=== PATIENT | male | born 1970 | race Caucasian/White ===

== ENCOUNTER → 2022-07-27 | Day surgery (SDC) | payer OTHER ==
[~2022-07-27] MED LIST: Bupivacaine 0.5% 30 ML SDV ONE; Dexamethasone 4 MG/ML SDV ONE; Glycopyrrolate 0.2 MG/ML 5 ML MDV ONE; Ketorolac 30 MG/ML SDV ONE; Lactated Ringers 1,000 ML ONE; Neostigmine Methylsulfate 1 MG/ML 5 ML Syringe ONE; Ondansetron 4 MG/2 ML SDV ONE; Propofol 200 MG/20 ML SDV ONE; Rocuronium 50 MG/5 ML Vial ONE; Succinylcholine 200 MG/10 ML MDV ONE; fentaNYL 250 MCG/5 ML SDV ONE; propofoL 0 ML ONE
[2022-07-27 19:57] VITALS: BP 134/66; PULSE 51
== END ==
LOC: JP.ED 16:21 → JP.SDS 17:13
PROVIDERS: ATTEND Specialist
DX: S82.891A Other fracture of right lower leg, initial encounter for closed fracture (principal); Z96.611 Presence of right artificial shoulder joint; Z79.899 Other long term (current) drug therapy
CPT/HCPCS: 27788; 27840; 73600-26-RT; 73600-RT; 76000; 99283; 99284-25; C1713; C1776; J0330; J1100; J1885; J2405; J2704; J2710; J3010; J3490; J7120; U0002

== ENCOUNTER 2023-06-01 08:57 | Day surgery (SDC) | payer OTHER ==
[2023-06-01 09:30] LABS: BASOPHILS ABSOLUTE AUTO 0.05 K/uL (0.00-0.10); BASOPHILS PERCENT AUTO 0.9 % (0.1-1.3); EOSINOPHILS ABSOLUTE AUTO 0.06 K/uL (0.00-0.40); EOSINOPHILS PERCENT AUTO 1.1 % (0.0-5.4); HEMOGLOBIN 15.7 g/dL (12.9-16.9); IMMATURE GRAN ABSOLUTE AUTO 0.01 K/uL (0.00-0.23); IMMATURE GRAN PERCENT AUTO 0.2 % (0.0-0.7); LYMPHOCYTES ABSOLUTE AUTO 1.63 K/uL (0.8-3.3); LYMPHOCYTES PERCENT AUTO 28.8 % (11.4-47.7); MEAN CORPUSCULAR HEMOGLOBIN 30.3 pg (31.6-35.5); MEAN CORPUSCULAR HGB CONC 35.7 g/dL (31.6-35.5); MEAN CORPUSCULAR VOLUME 84.9 fL (81.4-99.0); MONOCYTES ABSOLUTE AUTO 0.46 K/uL (0.20-0.90); MONOCYTES PERCENT AUTO 8.1 % (3.3-12.6); NEUTROPHILS ABSOLUTE AUTO 3.45 K/uL (1.0-7.6); NEUTROPHILS PERCENT AUTO 60.9 % (40.0-78.1); PLATELET COUNT,PLT 269 K/uL (130-375); RED BLOOD CELL COUNT 5.18 M/uL (4.14-5.76); WHITE BLOOD CELL COUNT,WBC 5.7 K/uL (3.2-11.0)
[2023-06-01] MEDS ORDERED: Lactated Ringers 1,000 ML IV SCH (09:30)
[2023-06-01] MEDS ORDERED: Nozin Nasal Sanitizer NASBOTH ONE (09:30)
[2023-06-01] MEDS ORDERED: fentaNYL 100 MCG/2 ML SDV ONE (09:34)
[2023-06-01] MEDS ORDERED: Bupivacaine 0.5% 30 ML SDV ONE ×2 (09:34→10:11)
[2023-06-01] MEDS ORDERED: Midazolam 1 MG/ML 2 ML SDV ONE ×2 (09:34→11:59)
[2023-06-01] MEDS ORDERED: Propofol 200 MG/20 ML SDV ONE ×4 (09:34→13:10)
[2023-06-01 09:46] LABS: A/G RATIO 1.5 (1.2-2.2); ALANINE AMINOTRANSFERASE,ALT 31 U/L (12-78); ALBUMIN 4.1 g/dL (3.4-5.0); ALKALINE PHOSPHATASE 71 U/L (46-116); ANION GAP 10.9 mmol/L (5.0-14.0); ASPARTATE AMNIOTRANSFERASE,AST 21 U/L (15-37); BILIRUBIN TOTAL 1.2 mg/dL (0.2-1.0); BLOOD UREA NITROGEN,BUN 15 mg/dL (7-18); CALCIUM 8.9 mg/dL (8.5-10.1); CARBON DIOXIDE,CO2 28 mmol/L (21-32); CHLORIDE,CL 104 mmol/L (100-108); EST CRCL DRUG DOSING (CG) 86.41 mL/min; ESTIMATED GFR 91 mL/min (>60); GLUCOSE RANDOM 111 mg/dL (74-106); POTASSIUM,K 3.9 mmol/L (3.6-5.2); PROTEIN TOTAL,TP 6.9 g/dL (6.4-8.2); SODIUM,NA 139 mmol/L (140-148)
[2023-06-01] MEDS ORDERED: ceFAZolin 2 GM in Premix Bag 1 BAG IV ONE (10:00)
[2023-06-01] MEDS ORDERED: hydrALAZINE 20 MG/ML SDV ONE (13:26)
[2023-06-01 15:35] VITALS: BP 131/83; PULSE 61
== END 2023-06-01 15:35 | disposition home or self-care (01) ==
LOC: JP.SDS 08:57
PROVIDERS: ATTEND Specialist
DX: M75.111 Incomplete rotator cuff tear or rupture of right shoulder, not specified as traumatic (principal); M75.41 Impingement syndrome of right shoulder; S43.431A Superior glenoid labrum lesion of right shoulder, initial encounter; M19.011 Primary osteoarthritis, right shoulder; E78.5 Hyperlipidemia, unspecified
CPT/HCPCS: 29807; 29826; 36415; 80053; 85025; A9270; C1713; J0360; J0690; J2250; J2704; J3010; J3490; J7120